=== PATIENT | male | born 1950 | race Caucasian/White ===

== ENCOUNTER 2017-09-14 10:10 | Emergency (ER) | payer MEDICARE ==
[~2017-09-14] VITALS: Ht 175.3 cm; Wt 54.5 kg
[2017-09-14 10:19] VITALS: Ht 175.3 cm; Wt 54.5 kg
[2017-09-14] MEDS ORDERED: DILANTIN100 MG PO (10:20)
[2017-09-14 11:00] LABS: BASOPHILS 1.5 % (0-2); EOSINOPHILS 8.3 % (0-7); HEMATOCRIT 38.9 % (42.0-54.0); HEMOGLOBIN 13.1 g/dL (13.5-17.5); IMMATURE GRANULOCYTES 0.2 % (0-5); LYMPHOCYTES 26.7 % (15-50); MCH 30.8 pg (26.0-34.0); MCHC 33.7 g/dL (31.0-37.0); MCV 91.3 fL (80.0-100.0); MEAN PLATELET VOLUME 8.5 fL (7.4-10.4); MONOCYTES 9.9 % (2-11); NEUTROPHILS 53.4 % (40-80); PLATELET COUNT 445 10x3/uL (130-400); RBC 4.26 10x6/uL (4.20-6.10); RDW 16.3 % (11.5-14.5); WBC 8.3 10x3/uL (4.8-10.8)
[2017-09-14 11:15] LABS: ALBUMIN 3.4 g/dL (3.4-5.0); ANION GAP 10.2 mmol/L (8-16); BILIRUBIN - TOTAL 0.29 mg/dL (0.2-1.3); CALCIUM 9.3 mg/dL (8.5-10.1); CARBON DIOXIDE 32.1 mmol/L (21.0-32.0); CREATININE - SERUM 1.1 mg/dL (0.6-1.3); POTASSIUM - SERUM 4.3 mmol/L (3.5-5.1); PROTEIN - SERUM 8.2 g/dL (6.4-8.2)
[2017-09-14 11:33] LABS: APPEARANCE CLEAR (CLEAR); BILIRUBIN NEGATIVE (NEGATIVE); COLOR YELLOW (YELLOW); GLUCOSE NEGATIVE (NEGATIVE); KETONE NEGATIVE (NEGATIVE); NITRITE NEGATIVE (NEGATIVE); PROTEIN NEGATIVE (NEGATIVE); UROBILINOGEN NORMAL (NORMAL)
[2017-09-14] MEDS ORDERED: STOOL SOFTENER240 MG PO (12:26)
[2017-09-14 12:39] VITALS: BP 131/89
== END 2017-09-14 12:39 | disposition home or self-care (01) ==
LOC: D.ER 10:10
PROVIDERS: Family Medicine
DX: K59.00 Constipation, unspecified (principal); G40.909 Epilepsy, unspecified, not intractable, without status epilepticus; Z90.5 Acquired absence of kidney

== ENCOUNTER 2017-11-09 18:19 | Inpatient (IN) | payer MEDICARE ==
[~2017-11-09] VITALS: Ht 175.3 cm; Wt 55.5 kg
--- NOTE | ~2017-11-09 | CN ---
PATIENT NAME:GISELA PRUETT MEDICAL RECORD: [id number] : 48 LOCATION:D. D.2123 ADMIT DATE: 11/09/17 ACCOUNT: [id number] CONSULTING PHYSICIAN: JULEE WALLS MD REFERRING PHYSICIAN: VALDEZ MARCOS MD DATE OF CONSULTATION: 11/10/2017 CONSULT REQUESTING PHYSICIAN: Valdez Marcos MD REASON FOR CONSULTATION: Pneumonia, acute exacerbation of chronic obstructive pulmonary disease. HISTORY OF PRESENT ILLNESS: Mr. Pruett is a 67-year-old gentleman who was admitted yesterday with worsening shortness of breath with coughing, wheezing, fever and chills, the patient is sick for the last 3 days. There is no associated nausea or vomiting. No diarrhea. REVIEW OF SYSTEMS: As in history of present illness. PAST MEDICAL HISTORY: 1. Seizure disorder. 2. History of chronic obstructive pulmonary disease. PAST SURGICAL HISTORY: He has a splenectomy. ALLERGIES: No known drug allergies. MEDICATIONS: On [place] was reviewed. PERSONAL AND SOCIAL HISTORY: The patient is an ex-smoker. He quit in 2009. FAMILY HISTORY: Noncontributory. PHYSICAL EXAMINATION: GENERAL: Now, the patient is lying comfortably in bed. He is not in acute distress. VITAL SIGNS: The blood pressure 155/71, pulse is 108, respiration is 20, temperature is 99.3, and SpO2 is 95% on 3 liters nasal cannula. HEENT: Conjunctivae are pink. Sclerae are not icteric. NECK: Neck is supple, no JVD. CHEST: There is prolonged expiration with wheezing. HEART: Rhythm regular, normal sound, no murmur. ABDOMEN: Abdomen is soft, bowel sounds present. No hepatosplenomegaly. RECTAL: Deferred. EXTREMITIES: No cyanosis, no clubbing, no pedal edema. SKIN: The skin is warm, normal turgor. CENTRAL NERVOUS SYSTEM: The patient is awake and alert. There is no obvious cranial nerve abnormality. The gait was not tested. CHEST RADIOGRAPH: There are bilateral patchy infiltrates. LABORATORY DATA: CBC: The WBC is 19.7, hemoglobin 11, hematocrit 32.7, the platelet count 404. Chemistry: Sodium 141, potassium 3.3, BUN 17, creatinine 0.9. CONSULT REPORT [id number] GISELA PRUETT IMPRESSION: 1. Acute exacerbation of chronic obstructive pulmonary disease. 2. Acute hypoxic respiratory failure. 3. Bilateral pneumonia, most likely community-acquired pneumonia. 4. Leukocytosis secondary to pneumonia. 5. Hypokalemia. 6. History of seizure disorder. 7. Ex cigarette smoker. RECOMMENDATION: 1. Continue Xopenex and Rocephin. 2. We will stop the Advair. Start on Brovana, budesonide nebulizer, albuterol. Continue albuterol/ipratropium nebulizer. 3. Check alpha-1 level. 4. We will follow up labs and chest radiograph. 5. Methylprednisolone IV. Dr. Marcos, thank you for involving me in the care of Mr. Pruett. TRANSINT:[id number] Voice Confirmation ID: [id number] DOCUMENT ID: [id number] JULEE WALLS MD CC: [id number] DICTATION DATE: 11/10/17 1649 FAMILY REUNIFICATION SPECIALIST: 11/10/17 1724 ADM IN [facility] [address] [place] [address]
[~2017-11-09 18:19] MED LIST: DILANTIN100 MG PO; STOOL SOFTENER240 MG PO
[2017-11-09] MEDS ORDERED: OMEPRAZOLE40 MG PO (18:37)
[2017-11-09] MEDS ORDERED: ASCORBIC ACID500 MG PO (18:37)
[2017-11-09] MEDS ORDERED: MULTI-DAY VITAM1 TAB PO (18:37)
[2017-11-09] MEDS ORDERED: URINOZINC PROSTATE (18:38)
[2017-11-09] MEDS ORDERED: VITAMIN D31000 UNIT PO (18:38)
[2017-11-09] MEDS ORDERED: COMBIVENT RESPIM4 GM INH (18:39)
[2017-11-09] MEDS ORDERED: CO Q-10200 MG PO (18:39)
[2017-11-09] MEDS ORDERED: PERCOGESIC (18:40)
[2017-11-09] MEDS ORDERED: BREO ELLIPTA 11 EACH INH (18:41)
[2017-11-09] MEDS ORDERED: SELENIUM (18:41)
[2017-11-09 18:56] LABS: HEMATOCRIT 37.5 % (42.0-54.0); MCH 31.6 pg (26.0-34.0); MCHC 34.7 g/dL (31.0-37.0); MEAN PLATELET VOLUME 8.1 fL (7.4-10.4); PLATELET COUNT 444 10x3/uL (130-400); RBC 4.12 10x6/uL (4.20-6.10)
[2017-11-09 19:12] LABS: ALBUMIN 3.1 g/dL (3.4-5.0); ALKALINE PHOSPHATASE 207 U/L (46-116); ALT (SGPT) 23 U/L (10-68); BILIRUBIN - TOTAL 0.36 mg/dL (0.2-1.3); CALC OSMOLALITY 281 mosm/kg (275-300); CALCIUM 9.4 mg/dL (8.5-10.1); CARBON DIOXIDE 28.5 mmol/L (21.0-32.0); CHLORIDE - SERUM 100 mmol/L (98-107); EOSINOPHILS 3 % (0-7); LYMPHOCYTES 16 % (15-50); MONOCYTES 3 % (2-11); NEUTROPHILS 78 % (40-80); PLATELET ESTIMATE INCREASED; POTASSIUM - SERUM 4.2 mmol/L (3.5-5.1); PROTEIN - SERUM 8.2 g/dL (6.4-8.2); SODIUM 138 mmol/L (136-145); UREA NITROGEN 21 mg/dL (7-18); eGFR NON AFRICAN AMERICAN 79 mL/min (90-120)
[2017-11-09 19:19] LABS: GLUCOSE 153 mg/dL (74-106)
[2017-11-09 19:20] VITALS: BP 133/82
[2017-11-09 19:40] LABS: CKMB 0.7 U/L (0.0-3.6); CREATINE KINASE 48 UL (21-232); PRO BNP 114 pg/mL (0-125)
[2017-11-09 19:41] LABS: TROPONIN-I < 0.017 ng/mL (0.000-0.060)
[2017-11-09 20:08] LABS: APPEARANCE CLEAR (CLEAR); BILIRUBIN NEGATIVE (NEGATIVE); COLOR YELLOW (YELLOW); GLUCOSE NEGATIVE (NEGATIVE); KETONE NEGATIVE (NEGATIVE); NITRITE NEGATIVE (NEGATIVE); PROTEIN NEGATIVE (NEGATIVE); UROBILINOGEN NORMAL (NORMAL)
[2017-11-10 02:18] VITALS: BP 143/83; BMI 17.7
[2017-11-10 05:40] LABS: BASOPHILS 0.4 % (0-2); EOSINOPHILS 1.1 % (0-7); HEMATOCRIT 32.7 % (42.0-54.0); IMMATURE GRANULOCYTES 0.5 % (0-5); MCH 30.6 pg (26.0-34.0); MCHC 33.6 g/dL (31.0-37.0); MCV 91.1 fL (80.0-100.0); MEAN PLATELET VOLUME 8.1 fL (7.4-10.4); MONOCYTES 8.9 % (2-11); NEUTROPHILS 80.1 % (40-80); PLATELET COUNT 404 10x3/uL (130-400); RBC 3.59 10x6/uL (4.20-6.10); RDW 14.8 % (11.5-14.5); WBC 19.7 10x3/uL (4.8-10.8)
[2017-11-10 06:08] LABS: CALCIUM 7.8 mg/dL (8.5-10.1); CARBON DIOXIDE 25.4 mmol/L (21.0-32.0); CHLORIDE - SERUM 106 mmol/L (98-107); CREATININE - SERUM 0.9 mg/dL (0.6-1.3); SODIUM 141 mmol/L (136-145); UREA NITROGEN 17 mg/dL (7-18); eGFR NON AFRICAN AMERICAN 89 mL/min (90-120)
[2017-11-10 06:14] LABS: CALC OSMOLALITY 281 mosm/kg (275-300); GLUCOSE 89 mg/dL (74-106); POTASSIUM - SERUM 3.3 mmol/L (3.5-5.1)
[2017-11-10 07:44] VITALS: BP 117/62
[2017-11-10 10:58] VITALS: BP 124/71
[2017-11-10 14:02] VITALS: Ht 175.3 cm; Wt 55.5 kg
[2017-11-10 15:38] VITALS: BP 155/71
[2017-11-10 20:00] VITALS: BP 113/64
[2017-11-11 04:00] VITALS: BP 97/63
[2017-11-11 04:53] LABS: BASOPHILS 0.2 % (0-2); EOSINOPHILS 0.2 % (0-7); HEMATOCRIT 34.6 % (42.0-54.0); IMMATURE GRANULOCYTES 0.4 % (0-5); LYMPHOCYTES 4.8 % (15-50); MCH 31.5 pg (26.0-34.0); MCHC 34.7 g/dL (31.0-37.0); MCV 90.8 fL (80.0-100.0); MEAN PLATELET VOLUME 9.2 fL (7.4-10.4); MONOCYTES 4.5 % (2-11); NEUTROPHILS 89.9 % (40-80); PLATELET COUNT 371 10x3/uL (130-400); RBC 3.81 10x6/uL (4.20-6.10); RDW 15.2 % (11.5-14.5); WBC 16.6 10x3/uL (4.8-10.8)
[2017-11-11 07:23] LABS: ALBUMIN 2.3 g/dL (3.4-5.0); ANION GAP 14.7 mmol/L (8-16); BILIRUBIN - TOTAL 0.16 mg/dL (0.2-1.3); CALCIUM 8.9 mg/dL (8.5-10.1); CARBON DIOXIDE 23.5 mmol/L (21.0-32.0); CREATININE - SERUM 1.1 mg/dL (0.6-1.3); MAGNESIUM - SERUM 1.9 mg/dL (1.8-2.4); POTASSIUM - SERUM 4.2 mmol/L (3.5-5.1); PROTEIN - SERUM 6.9 g/dL (6.4-8.2)
[2017-11-11 07:44] VITALS: BP 113/66
[2017-11-11 11:16] VITALS: BP 119/62
[2017-11-11 15:33] VITALS: BP 97/64
[2017-11-11 20:00] VITALS: BP 114/72
[2017-11-12 04:00] VITALS: BP 139/81
[2017-11-12 05:40] LABS: BASOPHILS 0.4 % (0-2); EOSINOPHILS 3.1 % (0-7); HEMOGLOBIN 12.2 g/dL (13.5-17.5); IMMATURE GRANULOCYTES 0.2 % (0-5); LYMPHOCYTES 14.6 % (15-50); MCH 31.4 pg (26.0-34.0); MCHC 34.9 g/dL (31.0-37.0); MCV 90.2 fL (80.0-100.0); MEAN PLATELET VOLUME 8.2 fL (7.4-10.4); MONOCYTES 14.7 % (2-11); RBC 3.88 10x6/uL (4.20-6.10); RDW 15.3 % (11.5-14.5); WBC 12.7 10x3/uL (4.8-10.8)
[2017-11-12 05:42] LABS: PLATELET COUNT 449 10x3/uL (130-400)
[2017-11-12 06:00] VITALS: BP 144/77
[2017-11-12 06:17] LABS: ALBUMIN 2.6 g/dL (3.4-5.0); ANION GAP 15.3 mmol/L (8-16); BILIRUBIN - TOTAL 0.18 mg/dL (0.2-1.3); CALCIUM 9.2 mg/dL (8.5-10.1); CARBON DIOXIDE 24.7 mmol/L (21.0-32.0); CREATININE - SERUM 1.1 mg/dL (0.6-1.3); MAGNESIUM - SERUM 1.9 mg/dL (1.8-2.4); PROTEIN - SERUM 7.6 g/dL (6.4-8.2)
[2017-11-12 17:13] VITALS: BP 123/80
[2017-11-12 20:00] VITALS: BP 138/76
[2017-11-13] VITALS: BP 128/71
[2017-11-13 04:00] VITALS: BP 127/80
[2017-11-13 04:44] LABS: BASOPHILS 0.8 % (0-2); HEMOGLOBIN 10.9 g/dL (13.5-17.5); IMMATURE GRANULOCYTES 0.2 % (0-5); LYMPHOCYTES 26.3 % (15-50); MCH 30.4 pg (26.0-34.0); MCHC 34.1 g/dL (31.0-37.0); MCV 89.4 fL (80.0-100.0); MEAN PLATELET VOLUME 8.1 fL (7.4-10.4); MONOCYTES 18.7 % (2-11); PLATELET COUNT 467 10x3/uL (130-400); RBC 3.58 10x6/uL (4.20-6.10)
[2017-11-13 04:56] LABS: WBC 8.3 10x3/uL (4.8-10.8)
[2017-11-13 05:03] LABS: ALBUMIN 2.2 g/dL (3.4-5.0); ALKALINE PHOSPHATASE 180 U/L (46-116); ALT (SGPT) 36 U/L (10-68); BILIRUBIN - TOTAL 0.21 mg/dL (0.2-1.3); CALC OSMOLALITY 283 mosm/kg (275-300); CALCIUM 8.8 mg/dL (8.5-10.1); CARBON DIOXIDE 26.4 mmol/L (21.0-32.0); CHLORIDE - SERUM 105 mmol/L (98-107); GLUCOSE 99 mg/dL (74-106); MAGNESIUM - SERUM 1.9 mg/dL (1.8-2.4); POTASSIUM - SERUM 4.1 mmol/L (3.5-5.1); PROTEIN - SERUM 6.6 g/dL (6.4-8.2); SODIUM 141 mmol/L (136-145); UREA NITROGEN 20 mg/dL (7-18); eGFR NON AFRICAN AMERICAN 79 mL/min (90-120)
[2017-11-13] MEDS ORDERED: FLORAJEN3 CAPS460 MG PO (13:40)
[2017-11-13] MEDS ORDERED: MUCINEX DM ER1 EAC1 PO (13:40)
[2017-11-13] MEDS ORDERED: PREDNISONE10 MG PO (13:40)
[2017-11-13] MEDS ORDERED: LEVAQUIN750 MG PO (13:42)
== END 2017-11-13 17:16 | disposition left against medical advice (07) | DRG 193 ==
LOC: D.ER 18:19 → D.M2 20:22
PROVIDERS: Emergency Medicine; Family Medicine
DX: J18.9 Pneumonia, unspecified organism (principal); J96.01 Acute respiratory failure with hypoxia; J44.0 Chronic obstructive pulmonary disease with (acute) lower respiratory infection; J44.1 Chronic obstructive pulmonary disease with (acute) exacerbation; K59.09 Other constipation; G40.909 Epilepsy, unspecified, not intractable, without status epilepticus; Z72.0 Tobacco use; E87.6 Hypokalemia